=== PATIENT | female | born 1990 | race American Indian/Alaskan Native ===

== ENCOUNTER 2019-11-07 11:23 | Emergency (ER) | payer OTHER ==
[2019-11-07 11:31] VITALS: BP 145/91
[2019-11-07] MEDS ORDERED: oxyCODONE /ACETAMINOPHEN 5-325MG TAB PO STA (12:08)
[2019-11-07 12:58] LABS: Bilirubin,Urine NEG (Negative); Blood,Urine MOD (Negative); Color,Urine Yellow (Yellow); Mucus,Urine FEW /HPF; Protein,Urine <15 mg/dL mg/dL (Negative); Urobilinogen,Urine < 2.0 mg/dL (<2.0)
[2019-11-07 13:50] LABS: HCG Qualitative,Urine Negative (Negative)
== END 2019-11-07 13:45 | disposition left against medical advice (07) ==
LOC: ED 11:23
DX: R25.2 Cramp and spasm (principal); Z53.21 Procedure and treatment not carried out due to patient leaving prior to being seen by health care provider
CPT/HCPCS: 81001; 81025

== ENCOUNTER 2020-07-31 20:12 | Emergency (ER) | payer MEDICAID, OTHER ==
--- NOTE | 2020-07-31 20:14 | Emergency Department Report ---
Blank Doc - Documentation Documentation: 30-year-old female that presents with left pelvic pain. Denies any vaginal bl eeidng. Stated is about 6 weeks . Denies ever having an ultrasound. This initial assessment/diagnostic orders/clinical plan/treatment(s) is/are subject to change based on patient's health status, clinical progression and re- assessment by fellow clinical providers in the ED. Further treatment and workup at subsequent clinical providers discretion. Patient/guardians urged not to elope from the ED as their condition may be serious if not clinically assessed and managed. Initial orders include: 1- Patient sent to [facility] for further evaluation and treatment 2- labs 3- UA 4- US OB
[2020-07-31 20:46] VITALS: BP 104/68
[2020-07-31 21:24] LABS: Basophils # (Auto) 0.1 K/mm3 (0.0-0.1); Basophils % (Auto) 0.7 % (0.0-1.8); Eosinophils # (Auto) 0.2 K/mm3 (0.0-0.4); Eosinophils % (Auto) 1.1 % (0.0-4.3); Hematocrit 37.5 % (30.3-42.9); Lymphocytes # (Auto) 4.5 K/mm3 (1.2-5.4); Lymphocytes % (Auto) 31.6 % (13.4-35.0); Mean Corpuscular HGB Conc 35 % (30-34); Mean Corpuscular Volume 97 fl (79-97); Monocytes # (Auto) 1.2 K/mm3 (0.0-0.8); Monocytes % (Auto) 8.6 % (0.0-7.3); Platelet Count 261 K/mm3 (140-440); Red Blood Count 3.85 M/mm3 (3.65-5.03); Red Cell Distribution Width 13.2 % (13.2-15.2)
[2020-07-31 21:36] LABS: Blood Urea Nitrogen 9 mg/dL (7-17); Calcium 9.7 mg/dL (8.4-10.2); Hemolysis Index 14
[2020-07-31 21:44] LABS: BUN/Creatinine Ratio 23
--- NOTE | 2020-07-31 23:21 | Ultrasound Report ---
Early obstetrical ultrasound INDICATION: Early , pelvic pain TECHNIQUE: Transabdominal COMPARISON: None FINDINGS: Uterus measures 9.2 cm in length. Cervical length is 3.6 cm. A fundal intrauterine pregnanc y is noted with pole and yolk sac seen. Estimated gestational age is 6 weeks 0 days by crown-ru mp length. cardiac activity was documented at 117 bpm. No obvious implantational bleed is seen. Ovaries are not visualized. No free fluid is seen. No adnexal masses or obvious. Signer Name: Malick Trejo MD Signed: 07/31/2020 11:17 PM Workstation Name: [id number]
[2020-08-01 01:29] LABS: Bacteria,Urine 1+ /HPF (Negative); Bilirubin,Urine NEG (Negative); Blood,Urine NEG (Negative); Color,Urine Yellow (Yellow); Mucus,Urine FEW /HPF; Protein,Urine <15 mg/dL mg/dL (Negative); Urobilinogen,Urine < 2.0 mg/dL (<2.0)
== END 2020-07-31 21:00 | disposition left against medical advice (07) ==
LOC: ED 20:12
DX: O26.891 Other specified pregnancy related conditions, first trimester (principal); R10.9 Unspecified abdominal pain; Z53.21 Procedure and treatment not carried out due to patient leaving prior to being seen by health care provider
CPT/HCPCS: 36415; 76801; 80048; 81001; 84702; 85025